=== PATIENT | male | born 1980 ===

== ENCOUNTER 2021-05-21 15:07 | Emergency (ER) | payer OTHER ==
[~2021-05-21] VITALS: Ht 165.1 cm; Wt 88.5 kg
[2021-05-21] MEDS ORDERED: AMOX-CLAV 875-1 EACH PO (17:22)
[2021-05-21] MEDS ORDERED: MEDROLPACK PO (17:22)
== END 2021-05-21 17:25 | disposition home or self-care (01) ==
LOC: ER 15:07
DX: K05.10 Chronic gingivitis, plaque induced (principal)